=== PATIENT | male | born 1955 | race Caucasian/White ===

== ENCOUNTER 2021-10-28 06:10 | Emergency (ER) | payer MEDICARE, OTHER ==
[~2021-10-28] VITALS: Ht 175.3 cm; Wt 78.0 kg
[~2021-10-28 06:10] MED LIST: AMOXICILLIN500 MG PO; BYSTOLIC5 MG PO
[2021-10-28] MEDS ORDERED: DICYCLOMINE HCL 20 MG/2 ML VIAL IM ONE ×2 (06:30→06:47)
[2021-10-28] MEDS ORDERED: SODIUM CHLORIDE 0.9% 1000ML 1,000 ML IV STA (06:30)
[2021-10-28 06:42] LABS: BASOPHILS # (AUTO) 0.1 (0.0-0.1); BASOPHILS % 0.6 % (0.0-1.0); EOSINOPHILS # (AUTO) 0.2 (0.0-0.4); EOSINOPHILS % 1.6 % (0.0-6.0); HEMATOCRIT 45.9 % (38.2-49.6); LYMPHOCYTES # (AUTO) 2.9 (1.0-3.2); MEAN CORPUSCULAR HEMOGLOBIN 32.1 pg (28-32); MEAN CORPUSCULAR HGB CONC 32.7 g/dL (31-35); MEAN CORPUSCULAR VOLUME 98.1 fL (81-99); MONOCYTES # (AUTO) 0.8 (0.2-0.8); MONOCYTES % 6.4 % (4.4-11.3); NEUTROPHILS # (AUTO) 8.6 (2.1-6.9); NEUTROPHILS % 68.2 % (38.7-80.0); PLATELET COUNT 226 x10e3/uL (140-360); RED BLOOD COUNT 4.68 x10e6/uL (4.3-5.7); RED CELL DISTRIBUTION WIDTH 12.6 % (11.7-14.4)
[2021-10-28] MEDS ORDERED: SODIUM CHLORIDE 0.9% 1000ML 1,000 ML ONE (06:47)
[2021-10-28 06:56] LABS: ALBUMIN 3.9 g/dL (3.5-5.0); ALBUMIN/GLOBULIN RATIO 1.2 (0.8-2.0); ANION GAP 12.2 mmol/L (8-16); CALCIUM 9.6 mg/dL (8.4-10.2); POTASSIUM 4.2 mmol/L (3.5-5.1)
[2021-10-28 07:07] LABS: CLARITY,URINE SL CLOUDY (CLEAR); COLOR,URINE YELLOW (YELLOW); LEUKOCYTE ESTERASE ,URINE NEGATIVE (NEGATIVE); NITRITE,URINE NEGATIVE (NEGATIVE)
[2021-10-28 07:08] LABS: BACTERIA,URINE RARE /HPF; EPITHELIAL CELLS,URINE FEW /LPF; KETONES,URINE NEGATIVE (NEGATIVE); PROTEIN,URINE DIPSTICK NEGATIVE (NEGATIVE); RBC,URINE 0-5 /HPF (0-5); URINE UROBILINOGEN 0.2 mg/dL (0.2 - 1); WBC,URINE (MAN) 0-5 /HPF (0-5)
[2021-10-28 07:14] LABS: CREATININE, SERUM 1.04 mg/dL (0.72-1.25)
[2021-10-28 07:51] LABS: CREATINE KINASE 68 IU/L (30-200)
[2021-10-28 09:31] VITALS: BP 135/78
== END 2021-10-28 09:25 | disposition home or self-care (01) ==
LOC: ER 06:24
DX: R10.11 Right upper quadrant pain (principal); I10 Essential (primary) hypertension; Z20.822 Contact with and (suspected) exposure to COVID-19
CPT/HCPCS: 36415; 71045; 76705; 80053; 81001; 82550; 82553; 83690; 84484; 85025; 93005; 99284; C9113; J0500; J7030; U0002

== ENCOUNTER 2021-12-27 00:24 | Observation (INO) | payer MEDICARE ==
[~2021-12-27] VITALS: Ht 175.3 cm; Wt 78.0 kg
[2021-12-27] VITALS (9 sets, daily range): BP systolic 107–123; BP diastolic 67–74
[2021-12-27] MEDS ORDERED: ACETAMINOPHEN 325 MG TAB PO STA (00:44)
[2021-12-27] MEDS ORDERED: SODIUM CHLORIDE 0.9% 1000ML 1,000 ML IV STA (00:44)
[2021-12-27 00:49] LABS: BASOPHILS % 0.1 % (0.0-1.0); EOSINOPHILS # (AUTO) 0.1 (0.0-0.4); EOSINOPHILS % 0.9 % (0.0-6.0); HEMATOCRIT 47.4 % (38.2-49.6); HEMOGLOBIN 15.9 g/dL (14.0-18.0); LYMPHOCYTES # (AUTO) 0.8 (1.0-3.2); LYMPHOCYTES % 8.1 % (18.0-39.1); MEAN CORPUSCULAR HEMOGLOBIN 32.6 pg (28-32); MEAN CORPUSCULAR HGB CONC 33.5 g/dL (31-35); MEAN CORPUSCULAR VOLUME 97.1 fL (81-99); MONOCYTES # (AUTO) 0.2 (0.2-0.8); MONOCYTES % 1.9 % (4.4-11.3); NEUTROPHILS # (AUTO) 9.2 (2.1-6.9); NEUTROPHILS % 88.8 % (38.7-80.0); PLATELET COUNT 222 x10e3/uL (140-360); RED BLOOD COUNT 4.88 x10e6/uL (4.3-5.7); RED CELL DISTRIBUTION WIDTH 12.5 % (11.7-14.4)
[2021-12-27 01:06] LABS: ALBUMIN 4.2 g/dL (3.5-5.0); ALBUMIN/GLOBULIN RATIO 1.1 (0.8-2.0); ANION GAP 15.6 mmol/L (8-16); CALCIUM 9.9 mg/dL (8.4-10.2); CREATININE, SERUM 1.1 mg/dL (0.72-1.25); POTASSIUM 4.6 mmol/L (3.5-5.1)
[2021-12-27] MEDS: PIPERACILLIN/TAZOBACTAM 3.375 GM in SODIUM CHLORIDE 0.9% 50ML 50 ML IV SCH ×4 (01:07→19:05)
[2021-12-27 01:15] LABS: B-TYPE NATRIURETIC PEPTIDE2 29.9 pg/mL (0-100)
[2021-12-27] MEDS ORDERED: SODIUM CHLORIDE 0.9% 50ML 50 ML ONE (01:31)
[2021-12-27] MEDS ORDERED: IOPAMIDOL 370 MG/ML 200 ML INFUS..BTL INJ ONE (01:31)
[2021-12-27 02:18] LABS: CLARITY,URINE CLEAR (CLEAR); COLOR,URINE YELLOW (YELLOW); KETONES,URINE NEGATIVE (NEGATIVE); LEUKOCYTE ESTERASE ,URINE NEGATIVE (NEGATIVE); NITRITE,URINE NEGATIVE (NEGATIVE); PROTEIN,URINE DIPSTICK NEGATIVE (NEGATIVE); URINE UROBILINOGEN 0.2 mg/dL (0.2 - 1)
[2021-12-27 02:20] LABS: BACTERIA,URINE FEW /HPF; EPITHELIAL CELLS,URINE RARE /LPF; WBC,URINE (MAN) 0-5 /HPF (0-5)
[2021-12-27] MEDS ORDERED: ALBUTEROL SULF 0.083% NEB SOLN 3 ML NEB NEB PRN (02:30)
[2021-12-27] MEDS: METHYLPREDNISOLONE SOD SUCC 40 MG/ML VIAL 1ML IV SCH ×3 (02:30→20:41)
[2021-12-27] MEDS ORDERED: ACETAMINOPHEN 325 MG TAB PO PRN (02:30)
[2021-12-27] MEDS ORDERED: SIMVASTATIN20 MG PO (05:42)
[2021-12-27] MEDS ORDERED: PROTONIX20 MG PO (05:42)
[2021-12-27] MEDS ORDERED: ATENOLOL50 MG PO (05:42)
[2021-12-27] MEDS ORDERED: DICYCLOMINE HCL20 MG PO (05:42)
[2021-12-27] MEDS ORDERED: SODIUM CHLORIDE 0.9% 250ML 250 ML ONE (05:58)
[2021-12-27] MEDS ORDERED: METOPROLOL TARTRATE INJ 1 MG/ML VIAL IV PRN (07:45)
[2021-12-27] MEDS ORDERED: POLYETHYLENE GLYCOL 3350 17 GM PACK PO PRN (07:45)
[2021-12-27] MEDS ORDERED: ONDANSETRON HCL INJ 2MG/ML 2ML 2 MG/ML VIAL IV PRN (07:45)
[2021-12-27] MEDS ORDERED: DICYCLOMINE HCL 20 MG TAB PO PRN (08:45)
[2021-12-27 09:27] LABS: CREATINE KINASE MB 1.5 ng/mL (0-5.0)
[2021-12-27] MEDS: ATENOLOL 50 MG TAB PO SCH (10:47)
[2021-12-27] MEDS: DOCUSATE SODIUM 100 MG CAP PO SCH ×2 (10:47→19:05)
[2021-12-27 16:53] LABS: CREATINE KINASE MB 1.6 ng/mL (0-5.0)
[2021-12-27] MEDS: FAMOTIDINE 20 MG TAB PO SCH (19:05)
[2021-12-27] MEDS ORDERED: SIMVASTATIN 20 MG TAB PO SCH (21:00)
[2021-12-27] MEDS ORDERED: TEMAZEPAM 15 MG CAP PO PRN (21:00)
[2021-12-28] MEDS: PIPERACILLIN/TAZOBACTAM 3.375 GM in SODIUM CHLORIDE 0.9% 50ML 50 ML IV SCH ×3 (00:20→11:27)
[2021-12-28 04:20] VITALS: BP 132/83
[2021-12-28 05:57] LABS: BASOPHILS % 0.1 % (0.0-1.0); HEMATOCRIT 42.3 % (38.2-49.6); HEMOGLOBIN 13.9 g/dL (14.0-18.0); LYMPHOCYTES # (AUTO) 0.9 (1.0-3.2); LYMPHOCYTES % 5.9 % (18.0-39.1); MEAN CORPUSCULAR HGB CONC 32.9 g/dL (31-35); MEAN CORPUSCULAR VOLUME 97.2 fL (81-99); MONOCYTES # (AUTO) 0.1 (0.2-0.8); MONOCYTES % 0.8 % (4.4-11.3); NEUTROPHILS # (AUTO) 14.3 (2.1-6.9); NEUTROPHILS % 92.1 % (38.7-80.0); PLATELET COUNT 212 x10e3/uL (140-360); RED BLOOD COUNT 4.35 x10e6/uL (4.3-5.7); RED CELL DISTRIBUTION WIDTH 12.7 % (11.7-14.4)
[2021-12-28 06:28] LABS: ALBUMIN 3.4 g/dL (3.5-5.0); ALBUMIN/GLOBULIN RATIO 0.9 (0.8-2.0); ANION GAP 11.4 mmol/L (8-16); CALCIUM 9.6 mg/dL (8.4-10.2); POTASSIUM 4.4 mmol/L (3.5-5.1)
[2021-12-28 06:29] LABS: CHOL/HDL RATIO 2.1 (3.9-4.7); MAGNESIUM 2.2 MG/DL (1.3-2.1); PHOSPHORUS 3.1 MG/DL (2.3-4.7)
[2021-12-28 06:38] LABS: THYROID STIMULATING HORMONE 0.262 uIU/mL (0.350-4.940)
[2021-12-28] MEDS ORDERED: PANTOPRAZOLE SOD 40 MG TABEC PO SCH (07:30)
[2021-12-28 07:32] VITALS: BP 128/84
[2021-12-28] MEDS: METHYLPREDNISOLONE SOD SUCC 40 MG/ML VIAL 1ML IV SCH (09:10)
[2021-12-28] MEDS: ATENOLOL 50 MG TAB PO SCH (09:10)
[2021-12-28] MEDS: FAMOTIDINE 20 MG TAB PO SCH (09:10)
[2021-12-28] MEDS: DOCUSATE SODIUM 100 MG CAP PO SCH (09:10)
[2021-12-28 09:14] VITALS: BP 128/84
[2021-12-28 11:08] VITALS: BP 140/78
[2021-12-28] MEDS ORDERED: AUGMENTIN 500-1 EACH PO (12:43)
[2021-12-28] MEDS ORDERED: PREDNISONE20 MG PO (12:53)
[2021-12-28] MEDS ORDERED: ONDANSETRON HCL 4 MG ORAL DISINTEGRATING TAB PO PRN (13:30)
== END 2021-12-28 13:40 | disposition home or self-care (01) ==
LOC: ER 00:28 → INTOOBSV 02:39 → ERHOLD 02:39 → MED/SURG 04:37
PROVIDERS: ADMIT Internal Medicine; ATTEND Internal Medicine
DX: J44.1 Chronic obstructive pulmonary disease with (acute) exacerbation (principal); J96.01 Acute respiratory failure with hypoxia; J01.90 Acute sinusitis, unspecified; I10 Essential (primary) hypertension; E78.5 Hyperlipidemia, unspecified; Z74.09 Other reduced mobility; Z88.1 Allergy status to other antibiotic agents; Z20.822 Contact with and (suspected) exposure to COVID-19
CPT/HCPCS: 36415 ×2; 71260; 80053 ×2; 80061; 81001; 82550; 82553; 82948; 83036; 83605; 83735; 83880; 84100; 84443; 84484; 85025 ×2; 87040; 93005; 93306; 94799 ×2; 97161; 97530; 99285; G0378 ×2; J2543 ×2; J2920 ×2; J7030; J7050; Q9967; S0164; U0002